=== PATIENT | female | born 1985 | race Caucasian/White ===

== ENCOUNTER 2018-02-19 12:41 | Emergency (ER) | payer OTHER ==
[2018-02-19 12:51] VITALS: TEMP 98; BMI 27.3
--- NOTE | 2018-02-19 12:58 | PDOC ---
History of Present Illness - General History Source: Patient Exam Limitations: No Limitations <John Calvillo - Last Filed: 02/19/18 15:13> - History of Present Illness Initial Comments: 32 year old female with PMH of migraines and 4 months s/p presenting with headache x 4 days with nausea, vomiting x3. Her typical migraines are bi- temporal, posterior occipital and co-present with nausea, vomiting, sonophobia, and photopobia. This current headache presented with all of these symptoms but with the addition of much worse severity (10/10) and with an additional area of pain on top of her head. This headache is also worse in the morning and worse with bending over. It has not improved with her migramax, Tylenol, or ibuprofen so she came to the ED. Her vomiting is NBNB and she is tolerating minimal PO intake. She did return from a two week vacation in [place] one month prior but denied any sick contacts or illness. She denies syncope, visual loss, fevers, chills, recent illness, or other symptoms. 02/19/18 13:14 <Giancarlo Monge - Last Filed: 02/19/18 16:52> - General Chief Complaint: Headache Stated Complaint: HEADACHES Time Seen by Provider: 02/19/18 12:56 Past History <John Calvillo - Last Filed: 02/19/18 15:13> - Past Medical History Asthma: No Cancer: No Cardiac Disorders: No COPD: No Diabetes: No HTN: No Seizures: No Thyroid Disease: No Other medical history: migraines, cyst on ovaray - Suicide/Smoking/Psychosocial Hx Smoking History: Never smoked Have you smoked in the past 12 months: No Information on smoking cessation initiated: No Hx Alcohol Use: No Drug/Substance Use Hx: No Substance Use Type: None Hx Substance Use Treatment: No <Giancarlo Monge - Last Filed: 02/19/18 16:52> - Past Medical History Allergies/Adverse Reactions: Allergies Allergy/AdvReac Type Severity Reaction Status Date / Time No Known Allergies Allergy Verified 02/19/18 12:47 Home Medications: Ambulatory Orders B2/Magnesium Cit,Oxid/Feverfew [Migrelief Caplet] 1 each PO DAILY 02/19/18 Review of Systems - Review of Systems Constitutional: No: Chills, Diaphoresis, Fever HEENTM: No: Blurred Vision Respiratory: No: Cough, Shortness of Breath, Wheezing Cardiac (ROS): No: Chest Pain, Edema ABD/GI: Yes: Nausea, Vomiting. No: Diarrhea : No: Burning, Dysuria, Discharge Musculoskeletal: Yes: Neck Pain. No: Back Pain Integumentary: No: Bruising, Erythema, Flushing, Lesions Neurological: Yes: Headache. No: Numbness, Paresthesia <Giancarlo Monge - Last Filed: 02/19/18 16:52> *Physical Exam - Vital Signs Last Vital Signs Temp Pulse Resp BP Pulse Ox 98.0 F 100 H 18 129/93 100 02/19/18 12:48 02/19/18 12:48 02/19/18 12:48 02/19/18 12:48 02/19/18 12:48 <John Calvillo - Last Filed: 02/19/18 15:13> - Vital Signs Last Vital Signs Temp Pulse Resp BP Pulse Ox 98.0 F 100 H 18 129/93 100 02/19/18 12:48 02/19/18 12:48 02/19/18 12:48 02/19/18 12:48 02/19/18 12:48 - Physical Exam General Appearance: Yes: Nourished, Appropriately Dressed, Apparent Distress, Moderate Distress HEENT: positive: EOMI, TAMMY, Normal ENT Inspection, Normal Voice Neck: positive: Trachea midline, Normal Thyroid, Supple, Tender lateral (Left sided parasipinal cervical tenderness but not stiff.). negative: Tender, Rigid Respiratory/Chest: positive: Lungs Clear, Normal Breath Sounds. negative: Chest Tender, Respiratory Distress, Accessory Muscle Use Cardiovascular: positive: Regular Rhythm, Tachycardia. negative: Regular Rate Gastrointestinal/Abdominal: positive: Normal Bowel Sounds, Flat. negative: Tender Musculoskeletal: positive: Normal Inspection. negative: CVA Tenderness Extremity: positive: Normal Capillary Refill, Normal Inspection, Normal Range of Motion. negative: Tender Integumentary: positive: Normal Color, Dry, Warm Neurologic: positive: erp pm II-XII NML intact, Fully Oriented, Alert, Normal Mood/ Affect, Normal Response, Motor Strength 5/5, Finger to Nose, Other (Negative pronator drift, negative rhomberg). negative: EOM Palsy, Facial Droop, Numbness , Sensory Deficit, Confused, Disoriented <Giancarlo Monge - Last Filed: 02/19/18 16:52> ED Treatment Course - LABORATORY CBC & Chemistry Diagram: 02/19/18 13:36 02/19/18 13:36 - ADDITIONAL ORDERS Additional order review: Laboratory Results 02/19/18 02/19/18 13:36 13:36 Sodium 143 Potassium 4.0 Chloride 107 Carbon Dioxide 28 Anion Gap 8 BUN 8 Creatinine 0.4 L Creat Clearance w eGFR > 60 Random Glucose 82 Calcium 8.9 Total Bilirubin 0.2 AST 13 L ALT 14 Alkaline Phosphatase 70 Total Protein 7.6 Albumin 3.7 Urine Color Ltyellow Urine Appearance Cloudy Urine pH 7.0 Ur Specific Hammond 1.006 Urine Protein Negative Urine Glucose (UA) Negative Urine Ketones Negative Urine Blood 1+ H Urine Nitrite Negative Urine Bilirubin Negative Urine Urobilinogen Negative Ur Leukocyte Esterase 2+ H Urine WBC (Auto) 4 Urine RBC (Auto) 10 Ur Epithelial Cells Many Urine Bacteria Rare Urine Mucus Rare Urine HCG, Qual Negative 02/19/18 13:36 RBC 4.36 MCV 89.8 MCHC 33.5 RDW 13.1 MPV 7.5 Neutrophils % 73.0 Lymphocytes % 19.4 Monocytes % 6.0 D Eosinophils % 1.1 Basophils % 0.5 - Medications Given in the ED: ED Medications Discontinued Medications Generic Name Dose Route Start Last Admin Trade Name Celia PRN Reason Stop Dose Admin Acetaminophen 1,000 mg 02/19/18 13:25 02/19/18 14:23 Ofirmev Injection - IVPB 02/19/18 13:26 1,000 mg ONCE ONE Administration Sodium Chloride 1,000 mls @ 1,000 mls/hr 02/19/18 13:25 02/19/18 13:53 Normal Saline - IV 02/19/18 14:24 1,000 mls/hr ASDIR STA Administration Ketorolac Tromethamine 15 mg 02/19/18 14:56 02/19/18 15:07 Toradol Injection - IVPUSH 02/19/18 14:57 15 mg ONCE ONE Administration Metoclopramide HCl 10 mg 02/19/18 13:25 02/19/18 13:53 Reglan Injection - IVPUSH 02/19/18 13:26 10 mg ONCE ONE Administration <John Calvillo - Last Filed: 02/19/18 15:13> - LABORATORY CBC & Chemistry Diagram: 02/19/18 13:36 02/19/18 13:36 <Ray Mongesuzie - Last Filed: 02/19/18 16:52> Medical Decision Making - Medical Decision Making 32 year old female with headache slightly different in quality to her usual migraines with some concerning features including worse in the morning, worse with bending over, and new area of pain relative to her previous migraines. This is concerning for intracranial mass vs. acute migraine with slightly atypical features,. Head CT was negative and patient' symptoms drastically improved with Tylenol + Reglan and almost completely resolved with toradol 15 IV. Although UA demonstrated Leuk esterase it was nitrite negative had a low WBC , and had many epithelial cells so this is a contaminated and unconcerning UA. Will DC patient home with neurology follow up given she has never seen one before for her migraines. 02/19/18 15:28 <Giancarlo Monge - Last Filed: 02/19/18 16:52> *DC/Admit/Observation/Transfer <John Calvillo - Last Filed: 02/19/18 15:13> - Discharge Dispostion Admit: No <Ray Mongesuzie - Last Filed: 02/19/18 16:52> Diagnosis at time of Disposition: Migraine Qualifiers: Migraine type: with aura Status migrainosus presence: without status migrainosus Intractability: not intractable Qualified Code(s): G43.109 - Migraine with aura, not intractable, without status migrainosus - Discharge Dispostion Disposition: HOME Condition at time of disposition: Improved - Referrals Referrals: Stacy South [Primary Care Provider] - Abilio Whiteside MD [Staff Physician] - - Patient Instructions Printed Discharge Instructions: DI for Migraine Additional Instructions: You likely had a worse version of your usual migraines. We gave you a neurology follow up who you should set up an appointment with as soon as you can to get better control of your migraines. Please return to the ED if your headache gets worse over the next few days or does not get better with your Tylenol and Ibuprofen. - Post Discharge Activity Forms/Work/School Notes: Back to Work
[2018-02-19] MEDS ORDERED: METOCLOPRAMIDE HCL INJECTION 10 MG/2 ML VIAL IVPUSH ONE (13:25)
[2018-02-19] MEDS ORDERED: SODIUM CHLORIDE 1,000 ML IV STA (13:25)
[2018-02-19] MEDS ORDERED: ACETAMINOPHEN 1000 MG/100 ML VIAL (NON FORMULARY) IVPB ONE (13:25)
[2018-02-19] MEDS ORDERED: METOCLOPRAMIDE HCL INJECTION 10 MG/2 ML VIAL ONE (13:48)
[2018-02-19] MEDS ORDERED: ACETAMINOPHEN INJECTION 100 ML IVPB ONE (13:48)
[2018-02-19 14:03] LABS: BASO % 0.5 % (0-2.0); EOS % 1.1 % (0-4.5); HEMATOCRIT 39.2 % (32.4-45.2); HEMOGLOBIN 13.1 GM/dL (10.7-15.3); LYMPH % 19.4 % (8-40); MCH 30.1 pg (25.7-33.7); MCHC 33.5 g/dl (32.0-36.0); MEAN CELL VOLUME 89.8 fl (80-96); MEAN PLT VOLUME 7.5 fl (7.5-11.1); PLATELET COUNT 421 K/MM3 (134-434); RBC 4.36 M/mm3 (3.60-5.2); RDW 13.1 % (11.6-15.6); WHITE BLOOD COUNT 8.7 K/mm3 (4.0-10.0)
[2018-02-19 14:06] LABS: URINE APPEARANCE CLOUDY; URINE BILIRUBIN NEGATIVE (<2.0 mg/dL); URINE BLOOD 1+ (NEGATIVE); URINE COLOR LTYELLOW; URINE GLUCOSE (UA) NEGATIVE (NEGATIVE); URINE KETONE NEGATIVE (NEGATIVE); URINE NITRITE NEGATIVE (NEGATIVE); URINE PROTEIN NEGATIVE (NEGATIVE); URINE UROBILINOGEN NEGATIVE mg/dL (0.2-1.0)
[2018-02-19 14:07] LABS: URINE LEUK ESTERASE 2+ (NEGATIVE)
[2018-02-19 14:13] LABS: EPI CELLS MANY /HPF (FEW); URINE BACTERIA RARE /hpf (NONE SEEN); URINE MUCUS RARE
[2018-02-19 14:15] LABS: HCG,QUALITATIVE URINE NEGATIVE
[2018-02-19 14:24] LABS: CHLORIDE 107 mmol/L (98-107); SODIUM 143 mmol/L (136-145)
[2018-02-19 14:38] LABS: ALBUMIN 3.7 g/dl (3.4-5.0); ANION GAP 8 (8-16); BLOOD UREA NITROGEN 8 mg/dL (7-18); CALCIUM 8.9 mg/dL (8.5-10.1); CO2 28 mmol/L (21-32); GLUCOSE,RANDOM 82 mg/dL (74-106)
[2018-02-19 14:42] LABS: ALK PHOS 70 U/L (45-117); BILIRUBIN,TOTAL 0.2 mg/dL (0.2-1.0); CREATININE 0.4 mg/dL (0.55-1.02); SGOT/AST 13 U/L (15-37); SGPT/ALT 14 U/L (12-78); TOT PROT 7.6 g/dl (6.4-8.2)
[2018-02-19] MEDS ORDERED: KETOROLAC TROMETHAMINE 15 MG/ML VIAL IVPUSH ONE (14:56)
[2018-02-19] MEDS ORDERED: KETOROLAC TROMETHAMINE 15 MG/ML VIAL ONE (15:04)
--- NOTE | 2018-02-19 15:09 | PDOC ---
Attending Attestation - Resident Resident Name: Giancarlo Monge - ED Attending Attestation I have performed the following: I have examined & evaluated the patient, The case was reviewed & discussed with the resident, I agree w/resident's findings & plan, Exceptions are as noted - Medical Decision Making 02/19/18 15:08 32-year-old female 4 months here with a headache history of migraines slightly tingling in character normal neurological exam and feeling better after medication Differential includes migraine, dehydration, anemia, electrolyte abnormality, recurrent , central venous thrombosis was discussed over patient currently has no associated visual symptoms and symptoms are resolved medication likely. Pending CT of the head if normal will DC home with neurology follow-up instructed patient may require an MRI should worsen trace process however she is currently feeling much better with minimal intervention <Stacie Mcdaniel - Last Filed: 02/19/18 15:06> - HPI HPI: 02/19/18 15:13 The patient is a 32 year old female, 4 months status post , with a past medical history of migraines, ovarian cysts, (8 years ago) who presents to the Emergency Department with nausea and vomiting for 3 days and a headache for 4 days. She describes her headache as constant and 10/10 in severity. The patient reports that her pain is exacerbated in the morning and when bending over. She notes new pain in the superior region of her head. She denies any fall, trauma, syncope, visual changes. - Physicial Exam PE: 02/19/18 15:13 GENERAL: Awake, alert, and fully oriented, in no acute distress HEAD: No signs of trauma EYES: PERRLA, EOMI, sclera anicteric, conjunctiva clear. ENT: Auricles normal inspection, nares patent, Moist mucosa NECK: Normal ROM, supple, no lymphadenopathy, JVD, or masses LUNGS: Breath sounds equal, clear to auscultation bilaterally. No wheezes, and no crackles HEART: Regular rate and rhythm, normal S1 and S2, no murmurs, rubs or gallops ABDOMEN: Soft, nontender, normoactive bowel sounds. No guarding, no rebound. No masses EXTREMITIES: Normal range of motion, no edema. No clubbing or cyanosis. No cords, erythema, or tenderness. 5/5 Strength all 4 extremities NEUROLOGICAL: Normal speech. Cranial nerves intact. SKIN: Warm, Dry, normal turgor, no rashes or lesions noted. - Medical Decision Making 02/19/18 15:13 EXAM#: TYPE/EXAM: RESULT: [id number] CT/HEAD CT (STROKE) PROVIDED CLINICAL INDICATION: Rule out bleed. TECHNIQUE: Axial noncontrast head CT with coronal and sagittal reformations. COMPARISON: 04/03/[address] FINDINGS: There is no acute intracranial hemorrhage or extra-axial collection. There is no compelling evidence of acute transcortical infarction at this time. MRI is much more sensitive in detecting acute infarctions. The ventricles, sulci and cisterns are appropriate size. There is no mass effect , midline shift or hydrocephalus. The calvarium is intact. The visualized mastoid air cells are clear. The left sphenoid sinus is opacified and there is partial opacification of bilateral anterior and posterior ethmoid air cells with fluid layering dependently in the posterior ethmoid air cells. There is mild mucosal thickening along the right frontal sinus and right sphenoid sinus. IMPRESSION: No acute intracranial hemorrhage, mass effects or hydrocephalus. Paranasal sinus disease as described above. Please correlate clinically for acute sinusitis. Reported By: Mele Sheehan DO 02/19/18 1644 Documentation prepared by John Calvillo, acting as medical pathologist for Stacie Mcdaniel MD. <John Calvillo - Last Filed: 02/19/18 16:49>
[2018-02-19 17:16] VITALS: BP 132/78; PULSE 89
[2018-02-19 23:06] LABS: INR 1.2 (0.82-1.09); PROTHROMBIN TIME (PATIENT) 13.6 SEC (9.98-11.88)
== END 2018-02-19 17:14 | disposition home or self-care (01) ==
LOC: JER 12:41
PROC: 3E033GC Introduction of Other Therapeutic Substance into Peripheral Vein, Percutaneous Approach (ICD-10-PCS; principal; 2018-02-19)
PROC: 3E033NZ Introduction of Analgesics, Hypnotics, Sedatives into Peripheral Vein, Percutaneous Approach (ICD-10-PCS; 2018-02-19)
PROC: 3E0333Z Introduction of Anti-inflammatory into Peripheral Vein, Percutaneous Approach (ICD-10-PCS; 2018-02-19)
DX: G43.109 Migraine with aura, not intractable, without status migrainosus (principal); N83.202 Unspecified ovarian cyst, left side; N83.201 Unspecified ovarian cyst, right side
CPT/HCPCS: 36415; 70450-TC; 80053; 81003; 81015; 84703; 85025; 85610; 96374; 96375; 99283-25; J0131; J7030